=== PATIENT | male | born 1985 | race Caucasian/White ===

== ENCOUNTER 2019-09-28 15:32 | Emergency (ER) | payer OTHER ==
[~2019-09-28] VITALS: Ht 190.5 cm; Wt 119.7 kg
[2019-09-28 15:44] VITALS: Ht 190.5 cm; Wt 119.7 kg
[2019-09-28 16:28] VITALS: BP 148/96
== END 2019-09-28 16:28 | disposition home or self-care (01) ==
LOC: ED 15:32
DX: J32.9 Chronic sinusitis, unspecified (principal); M54.2 Cervicalgia; Z98.890 Other specified postprocedural states